=== PATIENT | female | born 1945 ===

== ENCOUNTER 2021-09-12 05:42 | Day surgery (SDC) | payer OTHER ==
[~2021-09-12 05:42] MED LIST: AVAPRO150 MG PO; LIPITOR PO; SYNTHROID100 MCG PO
[2021-09-12] MEDS ORDERED: PERCOCET 5-3251 EACH PO (15:32)
[2021-09-12] MEDS ORDERED: POLY119PG PO (15:33)
[2021-09-12] MEDS ORDERED: NEURONTIN600 M1 PO (15:33)
== END 2021-09-12 17:50 | disposition home or self-care (01) ==
LOC: CIR.AMB 05:42
PROVIDERS: ATTEND Surgery
DX: K40.20 Bilateral inguinal hernia, without obstruction or gangrene, not specified as recurrent (principal); I10 Essential (primary) hypertension; E78.5 Hyperlipidemia, unspecified; I34.1 Nonrheumatic mitral (valve) prolapse